=== PATIENT | male | born 1975 | race Caucasian/White ===

== ENCOUNTER 2021-12-23 09:49 | Observation (INO) | payer OTHER ==
[~2021-12-23] VITALS: Ht 180.3 cm; Wt 113.4 kg
[2021-12-23 09:52] VITALS: BP 188/141
--- NOTE | 2021-12-23 09:54 | NUR ---
patient ambulated to bed 8
--- NOTE | 2021-12-23 10:01 | NUR ---
Dr. Bustillos evaluating patient at bedside.
--- NOTE | 2021-12-23 10:06 | NUR ---
46 y/o male bib self with c/o bilateral knee pain x 1 year. Patient states he "cracked" his right knee so he put more weight on the other knee. Now both of his knees hurt. Denies taking any medication. Denies seeing a doctor when all of this happened. Medical History: HTN NKDA
--- NOTE | 2021-12-23 10:32 | NUR ---
Lab at bedside.
--- NOTE | 2021-12-23 10:37 | NUR ---
X-Ray at bedside
[2021-12-23 10:54] LABS: HEMATOCRIT 41.4 % (36-52); HEMOGLOBIN 13.7 g/dL (12.0-18.0); MEAN CORPUSCULAR HEMOGLOBIN 28 pg (27-31); MEAN CORPUSCULAR HGB CONC 33 g/dL (33-37); PLATELET COUNT (AUTO) 364 K/uL (140-450); RED BLOOD CELL COUNT(AUTO) 4.87 MIL/uL (4.20-6.10); RED CELL DISTRIBUTION WIDTH 14.2 % (11.6-13.7)
[2021-12-23 11:07] LABS: ALBUMIN 3.1 g/dL (3.4-5.0); CARBON DIOXIDE 28.5 mmol/L (21-32); CREATININE 1.1 mg/dL (0.6-1.3); POTASSIUM 3.5 mmol/L (3.5-5.1); TOTAL BILIRUBIN 0.4 mg/dL (0.0-1.0)
[2021-12-23 11:44] LABS: BASOPHILS % (MANUAL) 0 % (0-2); EOSINOPHILS % (MANUAL) 0 % (0-4); LYMPHOCYTES % (MANUAL) 3 % (20-46); MONOCYTES % (MANUAL) 7 % (5-12)
[2021-12-23] MEDS ORDERED: LORazepam 2 MG/ML VIAL IVP PRN (12:45)
[2021-12-23] MEDS ORDERED: ONDANSETRON 4 MG/2 ML VIAL IVP PRN (12:45)
[2021-12-23] MEDS ORDERED: ACETAMINOPHEN 325 MG TAB PO PRN (12:45)
[2021-12-23] MEDS ORDERED: VANCOMYCIN PER PHARMACY MC PRN (12:50)
--- NOTE | 2021-12-23 12:56 | NUR ---
ANDERSON swab obtained, walked to lab.
[2021-12-23] MEDS ORDERED: cefTRIAXone 1,000 MG VIAL ONE (13:46)
--- NOTE | 2021-12-23 14:00 | NUR ---
Obtained urine sample, walked to lab.
[2021-12-23] MEDS: NACL 0.9% 1,000 ML IV SCH ×2 (14:18→20:45)
[2021-12-23 14:30] LABS: BARBITURATE, URINE NEGATIVE ng/ml (NEG <=200)
[2021-12-23 14:31] LABS: BENZODIAZEPINE, URINE NEGATIVE ng/mL (NEG <=200); CANNABINOID, URINE NEGATIVE ng/mL (NEG <=50); COCAINE, URINE NEGATIVE ng/mL (NEG <=300); OPIATE, URINE NEGATIVE ng/mL (NEG <=2000); PHENCYCLIDINE SCREEN,URINE NEGATIVE ng/mL (NEG <=25)
[2021-12-23] MEDS: VANCOMYCIN 1,750 MG in DEXTROSE 5% 500 ML IV SCH (14:57)
--- NOTE | 2021-12-23 15:20 | NUR ---
Patient is unable to recall medication dosage he takes at home.
--- NOTE | 2021-12-23 15:29 | NUR ---
Patient will be admitted to care of Dr. Llanes. Admited to Telemetry. Will go to room 124-A. Belongings list completed. Report to ARIANE Gardner.
--- NOTE | 2021-12-23 15:59 | NUR ---
The patient's care was reviewed and supervised by ED Agency Nurse 8, RN, RN.
[2021-12-23 16:00] VITALS: BP 143/80
--- NOTE | 2021-12-23 16:00 | NUR ---
RECEIVED BEDSIDE REPORT. PT IS A&OX4 CURRENTLY WITH NO S/S OF DISTRESS. PT IS ON ROOM AIR. PT HAS 20G IV ON THE LEFT AC WHICH IS PATENT AND INTACT. BED IS IN LOWEST POSITION, CALL LIGHT WITHIN REACH.
[2021-12-23] MEDS: MORPHINE SULFATE 2 MG/ML SYR IVP PRN (18:55)
--- NOTE | 2021-12-23 19:30 | NUR ---
ENDORSED PT TO NIGHTSHIFT ARIANE SHELTON. PT IN STABLE CONDITION.
[2021-12-23 20:00] VITALS: BP 141/81
--- NOTE | 2021-12-23 22:34 | NUR ---
PATIENT SLEEPING ON ROOM AIR BED IN THE LOWEST POSITION WHEEL LOCKED. BREATHING NORMAL WITH SYMMETRICAL RISE AND FALL OF THE CHEST. IVF NS INFUSING AT 125 MLS/HR. CALL LIGHT WITHIN REACH. ALL SAFETY PRECAUTIONS ARE IN PLACE.
[2021-12-24] VITALS: BP 144/78
[2021-12-24] MEDS ORDERED: VANCOMYCIN 1,000 MG VIAL ONE (01:22)
[2021-12-24] MEDS: MORPHINE SULFATE 2 MG/ML SYR IVP PRN ×2 (01:23→14:55)
--- NOTE | 2021-12-24 01:23 | NUR ---
PATIENT COMPLAINED OF ABDOMINAL PAIN, MEDICATED.
[2021-12-24] MEDS: VANCOMYCIN 1,750 MG in DEXTROSE 5% 500 ML IV SCH (01:44)
[2021-12-24 04:00] VITALS: BP 164/112
[2021-12-24] MEDS: NACL 0.9% 1,000 ML IV SCH ×2 (04:45→12:45)
[2021-12-24 05:38] LABS: BASOPHILS # (AUTO) 0.1 K/uL (0.00-0.22); BASOPHILS % (AUTO) 0.4 % (0.0-2.0); EOSINOPHILS # (AUTO) 0.1 K/uL (0-0.4); EOSINOPHILS % (AUTO) 0.4 % (0.0-4.0); HEMATOCRIT 44.5 % (36-52); HEMOGLOBIN 14.4 g/dL (12.0-18.0); LYMPHOCYTES # (AUTO) 1.7 K/uL (2.0-11.5); LYMPHOCYTES % (AUTO) 8.9 % (20.5-51.1); MEAN CORPUSCULAR HEMOGLOBIN 28 pg (27-31); MEAN CORPUSCULAR HGB CONC 32 g/dL (33-37); MEAN CORPUSCULAR VOLUME 84.7 fL (80-94); MONOCYTES # (AUTO) 1.6 K/uL (0.8-1.0); MONOCYTES % (AUTO) 8.5 % (1.7-9.3); NEUTROPHILS # (AUTO) 15.5 K/uL (1.8-7.7); PLATELET COUNT (AUTO) 358 K/uL (140-450); RED BLOOD CELL COUNT(AUTO) 5.26 MIL/uL (4.20-6.10); RED CELL DISTRIBUTION WIDTH 14.6 % (11.6-13.7); WHITE BLOOD COUNT (AUTO) 18.9 K/uL (4.8-10.8)
--- NOTE | 2021-12-24 06:22 | NUR ---
PATIENT BP-198/124 P-[address] SHRESTHA BOTTOM WHEELER . AWAITING FOR CALL BACK.
[2021-12-24 06:23] LABS: NEUTROPHILS % (AUTO) 81.8 % (42.2-75.2)
[2021-12-24 06:31] LABS: ALBUMIN 3.1 g/dL (3.4-5.0); CARBON DIOXIDE 28.7 mmol/L (21-32); MAGNESIUM 2.2 mg/dL (1.8-2.4); PHOSPHORUS 3.1 mg/dL (2.5-4.9); POTASSIUM 3.7 mmol/L (3.5-5.1); TOTAL BILIRUBIN 0.5 mg/dL (0.0-1.0)
--- NOTE | 2021-12-24 06:55 | NUR ---
NOTIFIED DR SHRESTHA REGARDING PT ELEVATED BP, WAITING FOR REPLY. WILL ENDORSE TO DAY SHIFT NURSE TO FOLLOW UP.
--- NOTE | 2021-12-24 07:30 | NUR ---
GAVE REPORT TO DAY SHIFT NURSE FOR CONTINUITY OF CARE.
--- NOTE | 2021-12-24 07:31 | NUR ---
RECEIVED BEDSIDE REPORT FOR CONTINUITY OF CARE. PT A/OX4, RESPONSIVE TO QUESTIONS. ST ON MONITOR. 20G IV TO LAC INFUSING NS AT 10ML/HR D/T HTN. CONTINENT OF BOWEL AND BLADDER. MILD WEAKNESS THROUGHOUT. SITTING UP IN BED. STANDARD PRECAUTION. CALL LIGHT WITHIN REACH, BED IN LOWEST POSITION.
[2021-12-24 08:00] VITALS: BP 177/101
--- NOTE | 2021-12-24 08:04 | NUR ---
PT REPORTED FEELING NAUSEA AND ANXIETY AND WAS VISIBLY AGITATED. MEDICATED WITH PRN ATIVAN AND ZOFRAN.
--- NOTE | 2021-12-24 09:45 | NUR ---
BP 188/135. MESSAGED Carla POPE REGARDING ORDERS FOR HTN. ORDERED 10MG HYDRALAZINE Q6H FOR SBP > 160MMHG.
[2021-12-24] MEDS: hydrALAZINE 20 MG/ML VIAL IVP PRN ×2 (10:12→11:22)
--- NOTE | 2021-12-24 10:25 | NUR ---
REASSESSED BP 150/101. Addendum: 12/24/21 at 1144 by Li Hanson RN PT RESTING COMFORTABLY IN BED, RESPIRATIONS EVEN AND UNLABORED.
--- NOTE | 2021-12-24 11:22 | NUR ---
BP 178/118. MEDICATED WITH PRN HYDRALAZINE 10MG.
[2021-12-24 12:00] VITALS: BP 178/118
--- NOTE | 2021-12-24 12:30 | NUR ---
BP REASSESSED 163/107.
[2021-12-24] MEDS ORDERED: SULF-59 PO (13:45)
[2021-12-24] MEDS ORDERED: CEPH-588 PO (13:45)
[2021-12-24 14:20] VITALS: BP 166/107
--- NOTE | 2021-12-24 15:00 | NUR ---
PT REPORTED 6/10 KNEE PAIN, MEDICATED WITH PRN MORPHINE.
--- NOTE | 2021-12-24 15:45 | NUR ---
PT BROTHER YI AT BEDSIDE. BP 143/89. REPORTS DECREASED PAIN. RESPIRATIONS EVEN AND UNLABORED. IV REMOVED, PERSONAL BELONGINGS WITH PT. ASSISTED PT TO PRIVATE VEHICLE VIA WHEELCHAIR.
--- NOTE | 2021-12-26 11:37 | NUR ---
LATE ENTRY -- CONFIRMED WITH RN, IV VANCOMYCIN END TIME 12/24/21 AT 0244. AND ROCEPHIN IV END TIME 12/24/21 AT 1227.
== END 2021-12-24 15:49 | disposition home or self-care (01) ==
LOC: MED 09:49 → MTU 12:47
PROVIDERS: ADMIT Hospitalist; ATTEND Hospitalist
DX: R60.0 Localized edema (principal); Z20.822 Contact with and (suspected) exposure to COVID-19; L03.116 Cellulitis of left lower limb; L03.115 Cellulitis of right lower limb; G47.33 Obstructive sleep apnea (adult) (pediatric); D72.829 Elevated white blood cell count, unspecified; E88.09 Other disorders of plasma-protein metabolism, not elsewhere classified; E66.01 Morbid (severe) obesity due to excess calories; E83.51 Hypocalcemia; E87.1 Hypo-osmolality and hyponatremia; I10 Essential (primary) hypertension; Z79.899 Other long term (current) drug therapy
CPT/HCPCS: 36415; 71045; 73562; 80053; 80202; 80305; 83605; 83735; 83880; 84100; 84484; 85025; 87040; 87426; 93005; 93970; 96361; 96365; 96366; 96367; 96375; 96376; 99285; G0378; J0360; J0696; J2060; J2270; J2405; J3370; J7060; Q0092